=== PATIENT | male | born 1940 | race Caucasian/White ===

== ENCOUNTER 2017-08-10 07:26 | Day surgery (SDC) | payer OTHER, MEDICARE ==
[2017-08-10 08:49] VITALS: TEMP 98.1
[2017-08-10 09:14] VITALS: BP 140/69; PULSE 62
[2017-08-10] MEDS ORDERED: IRON SUCROSE INJECTION 200 MG in SODIUM CHLORIDE 100 ML IVPB ONE (10:00)
== END 2017-08-10 09:10 | disposition home or self-care (01) ==
LOC: JONCNONCHE 07:26 → J7W 08:09 → JONCNONCHE 09:10
PROVIDERS: ATTEND Internal Medicine Hematology & Oncology
PROC: 3E033GC Introduction of Other Therapeutic Substance into Peripheral Vein, Percutaneous Approach (ICD-10-PCS; principal; 2017-08-10)
DX: D50.9 Iron deficiency anemia, unspecified (principal)
CPT/HCPCS: 96365; J1756

== ENCOUNTER 2020-05-13 08:19 | Inpatient (IN) | payer OTHER, MEDICARE ==
[2020-05-13 09:03] VITALS: BMI 21.9
[2020-05-13 09:44] LABS: BASO % 0.2 % (0-2.0); HEMATOCRIT 42.3 % (35.4-49); HEMOGLOBIN 13.9 GM/dL (11.7-16.9); LYMPH % 2.2 % (8-40); MCH 32.7 pg (25.7-33.7); MCHC 32.9 g/dl (32.0-35.9); MEAN CELL VOLUME 99.4 fl (80-96); MEAN PLT VOLUME 9.4 fl (7.5-11.1); MONO % 2.2 % (3.8-10.2); NEUT % 95.4 % (42.8-82.8); PLATELET COUNT 181 K/MM3 (134-434); RBC 4.26 M/mm3 (4.00-5.60); RDW 14.3 % (11.9-15.9); VENOUS BASE EXCESS -2.6 mmol/L (-2-2); VENOUS O2 SATURATION 46.1 % (70-80); VENOUS PCO2 36.8 mmHg (38-52); VENOUS PH 7.39 (7.310-7.410); WHITE BLOOD COUNT 15.9 K/mm3 (4.0-10.0)
[2020-05-13 09:50] LABS: INR 0.97 (0.83-1.09); PROTHROMBIN TIME (PATIENT) 11.7 SEC (9.7-13.0)
[2020-05-13 09:52] LABS: ACTIVATED PTT 27.1 SECONDS (25.2-36.5)
[2020-05-13 10:10] LABS: CHLORIDE 107 mmol/L (98-107); POTASSIUM 4.1 mmol/L (3.5-5.1); SODIUM 140 mmol/L (136-145)
[2020-05-13 10:13] LABS: ALBUMIN 3.1 g/dl (3.4-5.0); ANION GAP 10 MMOL/L (8-16); BLOOD UREA NITROGEN 45.9 mg/dL (7-18); CALCIUM 8.7 mg/dL (8.5-10.1); CO2 23 mmol/L (21-32); GLUCOSE,RANDOM 102 mg/dL (74-106)
[2020-05-13 10:16] LABS: BILIRUBIN,DIRECT 0.2 mg/dL (0.0-0.2); CREATININE 1.6 mg/dL (0.55-1.3); SGOT/AST 82 U/L (15-37); SGPT/ALT 27 U/L (13-61)
[2020-05-13 10:18] LABS: BILIRUBIN,TOTAL 0.7 mg/dL (0.2-1); TOT PROT 7.2 g/dl (6.4-8.2)
[2020-05-13 10:19] LABS: ALK PHOS 53 U/L (45-117)
[2020-05-13] MEDS ORDERED: LACTATED RINGERS SOLUTION 1000 ML INFUS.BAG IV ONE (10:31)
[2020-05-13] MEDS ORDERED: CEFTRIAXONE 1 GM in DEXTROSE 5%-WATER - 100 ML IVPB ONE (10:35)
[2020-05-13] MEDS ORDERED: AZITHROMYCIN IVPB 500 MG in DEXTROSE 5%-WATER - 250 ML IVPB ONE (10:35)
[2020-05-13] MEDS ORDERED: DEXAMETHASONE SOD PHOSPHATE 4 MG/1 ML VIAL IVPUSH ONE (10:36)
[2020-05-13] MEDS ORDERED: AZITHROMYCIN IVPB 500 MG/250 ML BAG IVPB ONE (10:41)
[2020-05-13] MEDS ORDERED: DEXAMETHASONE SOD PHOSPHATE 4 MG/1 ML VIAL ONE (10:41)
[2020-05-13] MEDS ORDERED: CEFTRIAXONE 1 GM/50 ML BAG ONE (10:41)
[2020-05-13 12:18] LABS: ANISOCYTOSIS 1+; MACROCYTOSIS 0; OVALOCYTE 1+; PLATELET ESTIMATE NORMAL
[2020-05-13 13:15] LABS: LDH 408 U/L (87-246)
[2020-05-13 15:31] LABS: EPI CELLS 31 /uL (0-25.1); HYALINE CASTS 8 /uL (0-3.1); PH,URINE 5.5 (5.0-8.0); URINE APPEARANCE CLOUDY; URINE BACTERIA 7 /uL (0-1359); URINE BILIRUBIN NEGATIVE (NEGATIVE); URINE COLOR YELLOW; URINE GLUCOSE (UA) NEGATIVE (NEGATIVE); URINE KETONE TRACE (NEGATIVE); URINE LEUK ESTERASE NEGATIVE (NEGATIVE); URINE NITRITE NEGATIVE (NEGATIVE); URINE PROTEIN 1+ (NEGATIVE); URINE RBC 10 /uL (0-23.9); URINE UROBILINOGEN 0.2 mg/dL (0.2-1.0); URINE WBC 8 /uL (0-25.8)
[2020-05-13] MEDS: HEPARIN NA (PORCINE) 5,000 UNITS/ML 1ML VIAL SQ SCH (22:44)
[2020-05-13] MEDS ORDERED: MELATONIN 5 MG TABLETS PO ONE (22:55)
[2020-05-14] MEDS: HEPARIN NA (PORCINE) 5,000 UNITS/ML 1ML VIAL SQ SCH (06:50)
[2020-05-14] MEDS ORDERED: DEXTROSE 5%-WATER - 50 ML IVPB ONE (08:20)
[2020-05-14] MEDS ORDERED: cefTRIAXone SODIUM 1 GM VIAL ONE (08:20)
[2020-05-14 08:36] LABS: BASO % 0.2 % (0-2.0); HEMATOCRIT 40.9 % (35.4-49); HEMOGLOBIN 13.8 GM/dL (11.7-16.9); MCH 33.4 pg (25.7-33.7); MCHC 33.8 g/dl (32.0-35.9); MEAN PLT VOLUME 9.6 fl (7.5-11.1); MONO % 2.8 % (3.8-10.2); PLATELET COUNT 211 K/MM3 (134-434); RBC 4.13 M/mm3 (4.00-5.60); RDW 14.5 % (11.9-15.9); WHITE BLOOD COUNT 19.2 K/mm3 (4.0-10.0)
[2020-05-14 08:49] LABS: POTASSIUM 4.2 mmol/L (3.5-5.1)
[2020-05-14 08:51] LABS: CALCIUM 8.5 mg/dL (8.5-10.1)
[2020-05-14 08:52] LABS: ALBUMIN 2.4 g/dl (3.4-5.0); BLOOD UREA NITROGEN 45.8 mg/dL (7-18); MAGNESIUM 2.6 mg/dL (1.8-2.4)
[2020-05-14 08:55] LABS: PHOSPHOROUS 4.1 mg/dL (2.5-4.9)
[2020-05-14 08:56] LABS: BILIRUBIN,TOTAL 0.4 mg/dL (0.2-1); TOT PROT 5.8 g/dl (6.4-8.2)
[2020-05-14] MEDS: DEXAMETHASONE SOD PHOSPHATE 4 MG/1 ML VIAL IVPUSH SCH (09:22)
[2020-05-14] MEDS: ASCORBIC ACID 500 MG TABLET (FP) PO SCH (09:22)
[2020-05-14] MEDS: AZITHROMYCIN IVPB 500 MG/250 ML BAG IVPB SCH (09:22)
[2020-05-14] MEDS: ZINC SULFATE 220 MG CAPSULE (FP) PO SCH (09:22)
[2020-05-14 10:41] LABS: ANISOCYTOSIS 1+; MACROCYTOSIS 0; PLATELET ESTIMATE NORMAL
[2020-05-14] MEDS: CEFTRIAXONE 1 GM in DEXTROSE 5%-WATER - 50 ML IVPB SCH (10:55)
[2020-05-14] MEDS: APIXABAN 5 MG TABLET PO SCH ×2 (12:32→21:41)
[2020-05-14] MEDS ORDERED: REMDESIVIR 200 MG in SODIUM CHLORIDE 210 ML IVPB ONE (17:00)
[2020-05-14] MEDS: ROSUVASTATIN CA 10 MG TABLET (FP) PO SCH (21:40)
[2020-05-15] MEDS ORDERED: DEXTROSE 5%-WATER - 50 ML IVPB ONE (07:51)
[2020-05-15] MEDS ORDERED: cefTRIAXone SODIUM 1 GM VIAL ONE (07:51)
[2020-05-15 08:20] LABS: HEMATOCRIT 41.8 % (35.4-49); HEMOGLOBIN 13.9 GM/dL (11.7-16.9); MCH 32.6 pg (25.7-33.7); MCHC 33.3 g/dl (32.0-35.9); MEAN CELL VOLUME 97.9 fl (80-96); MEAN PLT VOLUME 8.9 fl (7.5-11.1); PLATELET COUNT 262 K/MM3 (134-434); RBC 4.27 M/mm3 (4.00-5.60); RDW 14.1 % (11.9-15.9); WHITE BLOOD COUNT 17.6 K/mm3 (4.0-10.0)
[2020-05-15 08:47] LABS: POTASSIUM 4.7 mmol/L (3.5-5.1)
[2020-05-15 09:08] LABS: BLOOD UREA NITROGEN 45.7 mg/dL (7-18); CALCIUM 8.3 mg/dL (8.5-10.1); MAGNESIUM 2.8 mg/dL (1.8-2.4)
[2020-05-15 09:11] LABS: CREATININE 0.9 mg/dL (0.55-1.3); PHOSPHOROUS 3.8 mg/dL (2.5-4.9)
[2020-05-15 09:25] LABS: ERYTHROCYTE SEDIMENTATION RATE 68 mm/hr (0-20)
[2020-05-15] MEDS: ZINC SULFATE 220 MG CAPSULE (FP) PO SCH (09:49)
[2020-05-15] MEDS: APIXABAN 5 MG TABLET PO SCH ×2 (09:49→21:50)
[2020-05-15] MEDS: ASCORBIC ACID 500 MG TABLET (FP) PO SCH (09:49)
[2020-05-15] MEDS: AZITHROMYCIN IVPB 500 MG/250 ML BAG IVPB SCH (09:49)
[2020-05-15] MEDS: DEXAMETHASONE SOD PHOSPHATE 4 MG/1 ML VIAL IVPUSH SCH (09:49)
[2020-05-15] MEDS: CEFTRIAXONE 1 GM in DEXTROSE 5%-WATER - 50 ML IVPB SCH (09:49)
[2020-05-15] MEDS ORDERED: PATIENT'S OWN MEDICATION (NON-FORMULARY) (Omeprazole 20 MG Capsule.Dr) PO SCH (10:00)
[2020-05-15] MEDS: FOLIC ACID 1 MG TABLET (FP) PO SCH (10:23)
[2020-05-15] MEDS: PANTOPRAZOLE 20 MG TABLET PO SCH (10:23)
[2020-05-15] MEDS: ALLOPURINOL 100 MG TABLET (FP) PO SCH (10:23)
[2020-05-15] MEDS ORDERED: SODIUM CHLORIDE 1,000 ML IV SCH (11:45)
[2020-05-15] MEDS ORDERED: PT OWN MED DRAWER 7, Y5N ONE (15:34)
[2020-05-15] MEDS: REMDESIVIR 100 MG in SODIUM CHLORIDE 230 ML IVPB SCH (16:05)
[2020-05-15] MEDS: ROSUVASTATIN CA 10 MG TABLET (FP) PO SCH (21:50)
[2020-05-16 07:54] LABS: POTASSIUM 4.6 mmol/L (3.5-5.1)
[2020-05-16 08:05] LABS: BLOOD UREA NITROGEN 34.8 mg/dL (7-18)
[2020-05-16 08:08] LABS: CALCIUM 8.3 mg/dL (8.5-10.1); CREATININE 0.7 mg/dL (0.55-1.3); HEMATOCRIT 42.7 % (35.4-49); HEMOGLOBIN 13.9 GM/dL (11.7-16.9); MCH 32.1 pg (25.7-33.7); MCHC 32.7 g/dl (32.0-35.9); MEAN CELL VOLUME 98.2 fl (80-96); MEAN PLT VOLUME 9.6 fl (7.5-11.1); PLATELET COUNT 300 K/MM3 (134-434); RBC 4.35 M/mm3 (4.00-5.60); RDW 14.1 % (11.9-15.9); WHITE BLOOD COUNT 12.4 K/mm3 (4.0-10.0)
[2020-05-16 08:10] LABS: MAGNESIUM 2.7 mg/dL (1.8-2.4)
[2020-05-16 08:11] LABS: PHOSPHOROUS 3.2 mg/dL (2.5-4.9)
[2020-05-16] MEDS ORDERED: cefTRIAXone SODIUM 1 GM VIAL ONE (09:19)
[2020-05-16] MEDS ORDERED: DEXTROSE 5%-WATER - 50 ML IVPB ONE (09:20)
[2020-05-16] MEDS: CEFTRIAXONE 1 GM in DEXTROSE 5%-WATER - 50 ML IVPB SCH (09:27)
[2020-05-16] MEDS: ASCORBIC ACID 500 MG TABLET (FP) PO SCH (09:27)
[2020-05-16] MEDS: ALLOPURINOL 100 MG TABLET (FP) PO SCH (09:27)
[2020-05-16] MEDS: APIXABAN 5 MG TABLET PO SCH ×2 (09:27→21:25)
[2020-05-16] MEDS: AZITHROMYCIN IVPB 500 MG/250 ML BAG IVPB SCH (09:27)
[2020-05-16] MEDS: PANTOPRAZOLE 20 MG TABLET PO SCH (09:27)
[2020-05-16] MEDS: ZINC SULFATE 220 MG CAPSULE (FP) PO SCH (09:28)
[2020-05-16] MEDS: DEXAMETHASONE SOD PHOSPHATE 4 MG/1 ML VIAL IVPUSH SCH (09:28)
[2020-05-16] MEDS: FOLIC ACID 1 MG TABLET (FP) PO SCH (09:28)
[2020-05-16 09:48] LABS: ERYTHROCYTE SEDIMENTATION RATE 39 mm/hr (0-20)
[2020-05-16] MEDS: REMDESIVIR 100 MG in SODIUM CHLORIDE 230 ML IVPB SCH (16:42)
[2020-05-16] MEDS: ROSUVASTATIN CA 10 MG TABLET (FP) PO SCH (21:25)
[2020-05-17 08:30] LABS: HEMATOCRIT 44.2 % (35.4-49); HEMOGLOBIN 14.4 GM/dL (11.7-16.9); MCHC 32.7 g/dl (32.0-35.9); MEAN CELL VOLUME 97.8 fl (80-96); MEAN PLT VOLUME 9.2 fl (7.5-11.1); PLATELET COUNT 341 K/MM3 (134-434); RBC 4.51 M/mm3 (4.00-5.60); RDW 14.1 % (11.9-15.9); WHITE BLOOD COUNT 14.5 K/mm3 (4.0-10.0)
[2020-05-17] MEDS ORDERED: cefTRIAXone SODIUM 1 GM VIAL ONE (08:34)
[2020-05-17] MEDS ORDERED: DEXTROSE 5%-WATER - 50 ML IVPB ONE (08:34)
[2020-05-17 08:52] LABS: POTASSIUM 4.7 mmol/L (3.5-5.1)
[2020-05-17 08:56] LABS: BLOOD UREA NITROGEN 30.2 mg/dL (7-18); CALCIUM 8.4 mg/dL (8.5-10.1); MAGNESIUM 2.6 mg/dL (1.8-2.4)
[2020-05-17 08:59] LABS: CREATININE 0.7 mg/dL (0.55-1.3)
[2020-05-17 09:00] LABS: PHOSPHOROUS 3.4 mg/dL (2.5-4.9)
[2020-05-17 09:51] LABS: ERYTHROCYTE SEDIMENTATION RATE 51 mm/hr (0-20)
[2020-05-17] MEDS: ALLOPURINOL 100 MG TABLET (FP) PO SCH (09:58)
[2020-05-17] MEDS: ZINC SULFATE 220 MG CAPSULE (FP) PO SCH (09:58)
[2020-05-17] MEDS: CEFTRIAXONE 1 GM in DEXTROSE 5%-WATER - 50 ML IVPB SCH (09:58)
[2020-05-17] MEDS: PANTOPRAZOLE 20 MG TABLET PO SCH (09:58)
[2020-05-17] MEDS: APIXABAN 5 MG TABLET PO SCH ×2 (09:58→22:25)
[2020-05-17] MEDS: DEXAMETHASONE SOD PHOSPHATE 4 MG/1 ML VIAL IVPUSH SCH (09:58)
[2020-05-17] MEDS: ASCORBIC ACID 500 MG TABLET (FP) PO SCH (09:58)
[2020-05-17] MEDS: FOLIC ACID 1 MG TABLET (FP) PO SCH (09:58)
[2020-05-17] MEDS: AZITHROMYCIN IVPB 500 MG/250 ML BAG IVPB SCH (09:59)
[2020-05-17] MEDS: REMDESIVIR 100 MG in SODIUM CHLORIDE 230 ML IVPB SCH (16:58)
[2020-05-17] MEDS: MELATONIN 5 MG TABLETS PO PRN (22:25)
[2020-05-17] MEDS: ROSUVASTATIN CA 10 MG TABLET (FP) PO SCH (22:25)
[2020-05-18 07:32] LABS: HEMATOCRIT 44.1 % (35.4-49); HEMOGLOBIN 14.5 GM/dL (11.7-16.9); MCHC 32.9 g/dl (32.0-35.9); MEAN CELL VOLUME 97.3 fl (80-96); MEAN PLT VOLUME 9.6 fl (7.5-11.1); PLATELET COUNT 365 K/MM3 (134-434); RBC 4.53 M/mm3 (4.00-5.60); RDW 14.1 % (11.9-15.9)
[2020-05-18 07:45] LABS: POTASSIUM 4.5 mmol/L (3.5-5.1)
[2020-05-18 07:48] LABS: BLOOD UREA NITROGEN 27.2 mg/dL (7-18); CALCIUM 8.3 mg/dL (8.5-10.1); MAGNESIUM 2.4 mg/dL (1.8-2.4)
[2020-05-18 07:52] LABS: CREATININE 0.7 mg/dL (0.55-1.3); PHOSPHOROUS 3.6 mg/dL (2.5-4.9)
[2020-05-18] MEDS ORDERED: cefTRIAXone SODIUM 1 GM VIAL ONE (08:49)
[2020-05-18] MEDS ORDERED: DEXTROSE 5%-WATER - 50 ML IVPB ONE (08:50)
[2020-05-18] MEDS: FOLIC ACID 1 MG TABLET (FP) PO SCH (09:02)
[2020-05-18] MEDS: CEFTRIAXONE 1 GM in DEXTROSE 5%-WATER - 50 ML IVPB SCH (09:02)
[2020-05-18] MEDS: APIXABAN 5 MG TABLET PO SCH ×2 (09:02→22:35)
[2020-05-18] MEDS: PANTOPRAZOLE 20 MG TABLET PO SCH (09:02)
[2020-05-18] MEDS: ALLOPURINOL 100 MG TABLET (FP) PO SCH (09:02)
[2020-05-18] MEDS: ASCORBIC ACID 500 MG TABLET (FP) PO SCH (09:02)
[2020-05-18] MEDS: ZINC SULFATE 220 MG CAPSULE (FP) PO SCH (09:02)
[2020-05-18] MEDS: AZITHROMYCIN IVPB 500 MG/250 ML BAG IVPB SCH (09:03)
[2020-05-18] MEDS: DEXAMETHASONE SOD PHOSPHATE 4 MG/1 ML VIAL IVPUSH SCH (09:03)
[2020-05-18 09:14] LABS: ERYTHROCYTE SEDIMENTATION RATE 18 mm/hr (0-20)
[2020-05-18] MEDS: REMDESIVIR 100 MG in SODIUM CHLORIDE 230 ML IVPB SCH (16:41)
[2020-05-18] MEDS: ROSUVASTATIN CA 10 MG TABLET (FP) PO SCH (22:35)
[2020-05-19 07:07] LABS: BASO % 0.3 % (0-2.0); HEMOGLOBIN 14.8 GM/dL (11.7-16.9); LYMPH % 2.2 % (8-40); MCH 32.6 pg (25.7-33.7); MCHC 33.6 g/dl (32.0-35.9); MONO % 4.1 % (3.8-10.2); NEUT % 93.4 % (42.8-82.8); PLATELET COUNT 385 K/MM3 (134-434); RBC 4.53 M/mm3 (4.00-5.60); RDW 14.3 % (11.9-15.9); WHITE BLOOD COUNT 15.7 K/mm3 (4.0-10.0)
[2020-05-19 07:25] LABS: POTASSIUM 4.3 mmol/L (3.5-5.1)
[2020-05-19 08:02] LABS: CALCIUM 8.2 mg/dL (8.5-10.1)
[2020-05-19 08:03] LABS: ALBUMIN 2.2 g/dl (3.4-5.0); BLOOD UREA NITROGEN 26.4 mg/dL (7-18); MAGNESIUM 2.3 mg/dL (1.8-2.4)
[2020-05-19 08:06] LABS: CREATININE 0.7 mg/dL (0.55-1.3); PHOSPHOROUS 3.7 mg/dL (2.5-4.9)
[2020-05-19 08:07] LABS: TOT PROT 5.9 g/dl (6.4-8.2)
[2020-05-19 08:09] LABS: BILIRUBIN,TOTAL 0.9 mg/dL (0.2-1)
[2020-05-19] MEDS: APIXABAN 5 MG TABLET PO SCH ×2 (09:22→23:05)
[2020-05-19] MEDS: PANTOPRAZOLE 20 MG TABLET PO SCH (09:22)
[2020-05-19] MEDS: ASCORBIC ACID 500 MG TABLET (FP) PO SCH (09:22)
[2020-05-19] MEDS: DEXAMETHASONE SOD PHOSPHATE 4 MG/1 ML VIAL IVPUSH SCH (09:22)
[2020-05-19] MEDS: ZINC SULFATE 220 MG CAPSULE (FP) PO SCH (09:22)
[2020-05-19] MEDS: ALLOPURINOL 100 MG TABLET (FP) PO SCH (09:22)
[2020-05-19] MEDS: FOLIC ACID 1 MG TABLET (FP) PO SCH (09:23)
[2020-05-19] MEDS ORDERED: PT OWN MED DRAWER 7, Y5N ONE (09:44)
[2020-05-19 11:00] LABS: ANISOCYTOSIS 1+; MACROCYTOSIS 1+; PLATELET ESTIMATE NORMAL
[2020-05-19] MEDS: ROSUVASTATIN CA 10 MG TABLET (FP) PO SCH (23:05)
[2020-05-20 07:56] LABS: BASO % 0.2 % (0-2.0); HEMATOCRIT 41.2 % (35.4-49); HEMOGLOBIN 13.6 GM/dL (11.7-16.9); LYMPH % 1.7 % (8-40); MCH 31.7 pg (25.7-33.7); MCHC 33.1 g/dl (32.0-35.9); MEAN CELL VOLUME 95.8 fl (80-96); MEAN PLT VOLUME 7.9 fl (7.5-11.1); MONO % 3.2 % (3.8-10.2); NEUT % 94.9 % (42.8-82.8); PLATELET COUNT 278 K/MM3 (134-434); RDW 14.5 % (11.9-15.9); WHITE BLOOD COUNT 18.3 K/mm3 (4.0-10.0)
[2020-05-20 08:09] LABS: POTASSIUM 4.3 mmol/L (3.5-5.1)
[2020-05-20 08:14] LABS: ALBUMIN 2.2 g/dl (3.4-5.0); BLOOD UREA NITROGEN 32.5 mg/dL (7-18); CALCIUM 8.1 mg/dL (8.5-10.1)
[2020-05-20 08:17] LABS: MAGNESIUM 2.3 mg/dL (1.8-2.4)
[2020-05-20 08:18] LABS: CREATININE 0.7 mg/dL (0.55-1.3)
[2020-05-20 08:19] LABS: BILIRUBIN,TOTAL 1.5 mg/dL (0.2-1); TOT PROT 5.6 g/dl (6.4-8.2)
[2020-05-20 08:21] LABS: PHOSPHOROUS 3.3 mg/dL (2.5-4.9)
[2020-05-20] MEDS: DEXAMETHASONE SOD PHOSPHATE 4 MG/1 ML VIAL IVPUSH SCH (10:42)
[2020-05-20] MEDS: FOLIC ACID 1 MG TABLET (FP) PO SCH (10:44)
[2020-05-20] MEDS: ZINC SULFATE 220 MG CAPSULE (FP) PO SCH (10:44)
[2020-05-20] MEDS: PANTOPRAZOLE 20 MG TABLET PO SCH (10:44)
[2020-05-20] MEDS: ALLOPURINOL 100 MG TABLET (FP) PO SCH (10:44)
[2020-05-20] MEDS: ASCORBIC ACID 500 MG TABLET (FP) PO SCH (10:44)
[2020-05-20] MEDS: APIXABAN 5 MG TABLET PO SCH ×2 (10:45→21:19)
[2020-05-20 11:12] LABS: ANISOCYTOSIS 0; MACROCYTOSIS 0; PLATELET ESTIMATE NORMAL
[2020-05-20] MEDS: MELATONIN 5 MG TABLETS PO PRN (21:19)
[2020-05-20] MEDS: ROSUVASTATIN CA 10 MG TABLET (FP) PO SCH (21:19)
[2020-05-21 06:28] LABS: BASO % 0.2 % (0-2.0); HEMATOCRIT 46.1 % (35.4-49); HEMOGLOBIN 15.1 GM/dL (11.7-16.9); LYMPH % 2.3 % (8-40); MCH 31.6 pg (25.7-33.7); MCHC 32.7 g/dl (32.0-35.9); MEAN CELL VOLUME 96.7 fl (80-96); MEAN PLT VOLUME 8.4 fl (7.5-11.1); MONO % 3.7 % (3.8-10.2); NEUT % 93.8 % (42.8-82.8); PLATELET COUNT 254 K/MM3 (134-434); RBC 4.77 M/mm3 (4.00-5.60); RDW 14.3 % (11.9-15.9)
[2020-05-21 06:45] LABS: POTASSIUM 4.1 mmol/L (3.5-5.1)
[2020-05-21 06:48] LABS: ALBUMIN 2.6 g/dl (3.4-5.0); BLOOD UREA NITROGEN 28.4 mg/dL (7-18); CALCIUM 8.8 mg/dL (8.5-10.1)
[2020-05-21 06:50] LABS: MAGNESIUM 2.3 mg/dL (1.8-2.4)
[2020-05-21 06:51] LABS: CREATININE 0.7 mg/dL (0.55-1.3)
[2020-05-21 06:52] LABS: PHOSPHOROUS 3.4 mg/dL (2.5-4.9)
[2020-05-21 06:54] LABS: BILIRUBIN,TOTAL 1.8 mg/dL (0.2-1); TOT PROT 6.8 g/dl (6.4-8.2)
[2020-05-21] MEDS: ASCORBIC ACID 500 MG TABLET (FP) PO SCH (09:16)
[2020-05-21] MEDS: PANTOPRAZOLE 20 MG TABLET PO SCH (09:16)
[2020-05-21] MEDS: ALLOPURINOL 100 MG TABLET (FP) PO SCH (09:16)
[2020-05-21] MEDS: APIXABAN 5 MG TABLET PO SCH ×2 (09:16→22:44)
[2020-05-21] MEDS: FOLIC ACID 1 MG TABLET (FP) PO SCH (09:16)
[2020-05-21] MEDS: ZINC SULFATE 220 MG CAPSULE (FP) PO SCH (09:16)
[2020-05-21] MEDS: DEXAMETHASONE SOD PHOSPHATE 4 MG/1 ML VIAL IVPUSH SCH (09:16)
[2020-05-21 09:18] LABS: ERYTHROCYTE SEDIMENTATION RATE 2 mm/hr (0-20)
[2020-05-21 11:00] LABS: ANISOCYTOSIS 1+; HELMET CELLS 1+; MACROCYTOSIS 1+; PLATELET ESTIMATE NORMAL
[2020-05-21] MEDS: ROSUVASTATIN CA 10 MG TABLET (FP) PO SCH (22:44)
[2020-05-22 07:39] LABS: BASO % 0.9 % (0-2.0); HEMATOCRIT 43.1 % (35.4-49); LYMPH % 2.1 % (8-40); MCH 31.6 pg (25.7-33.7); MCHC 32.6 g/dl (32.0-35.9); MEAN CELL VOLUME 96.7 fl (80-96); MEAN PLT VOLUME 9.1 fl (7.5-11.1); PLATELET COUNT 209 K/MM3 (134-434); RBC 4.45 M/mm3 (4.00-5.60); RDW 14.8 % (11.9-15.9); WHITE BLOOD COUNT 21.2 K/mm3 (4.0-10.0)
[2020-05-22 07:41] LABS: POTASSIUM 4.7 mmol/L (3.5-5.1)
[2020-05-22 07:43] LABS: CALCIUM 8.8 mg/dL (8.5-10.1); MAGNESIUM 2.4 mg/dL (1.8-2.4)
[2020-05-22 07:46] LABS: CREATININE 0.8 mg/dL (0.55-1.3); PHOSPHOROUS 3.8 mg/dL (2.5-4.9)
[2020-05-22] MEDS: ZINC SULFATE 220 MG CAPSULE (FP) PO SCH (10:00)
[2020-05-22] MEDS: PANTOPRAZOLE 20 MG TABLET PO SCH (10:00)
[2020-05-22] MEDS: DEXAMETHASONE SOD PHOSPHATE 4 MG/1 ML VIAL IVPUSH SCH (10:00)
[2020-05-22] MEDS: ALLOPURINOL 100 MG TABLET (FP) PO SCH (10:00)
[2020-05-22] MEDS: APIXABAN 5 MG TABLET PO SCH (10:00)
[2020-05-22] MEDS: FOLIC ACID 1 MG TABLET (FP) PO SCH (10:00)
[2020-05-22] MEDS: ASCORBIC ACID 500 MG TABLET (FP) PO SCH (10:00)
[2020-05-22 10:24] LABS: PLATELET ESTIMATE NORMAL
[2020-05-22 11:04] LABS: ERYTHROCYTE SEDIMENTATION RATE 6 mm/hr (0-20)
[2020-05-22] MEDS ORDERED: BACITRACIN 15 GM TUBE TOPICAL OINTMENT TP SCH (12:30)
[2020-05-22 14:27] VITALS: BP 136/85; PULSE 85; TEMP 97.4
== END 2020-05-22 16:16 | DRG 177 ==
LOC: JER 08:19 → JERBED 10:41 → J4W 18:37
PROVIDERS: ADMIT Internal Medicine; ATTEND Student in an Organized Health Care Education/Training Program
PROC: XW13325 Transfusion of Convalescent Plasma (Nonautologous) into Peripheral Vein, Percutaneous Approach, New Technology Group 5 (ICD-10-PCS; 2020-05-15)
PROC: XW033E5 Introduction of Remdesivir Anti-infective into Peripheral Vein, Percutaneous Approach, New Technology Group 5 (ICD-10-PCS; 2020-05-15)
PROC: 5A09457 Assistance with Respiratory Ventilation, 24-96 Consecutive Hours, Continuous Positive Airway Pressure (ICD-10-PCS; principal; 2020-05-21)
DX: U07.1 COVID-19 (principal); J96.01 Acute respiratory failure with hypoxia; J12.89 Other viral pneumonia; N17.9 Acute kidney failure, unspecified; E87.2 Acidosis; I24.8 Other forms of acute ischemic heart disease; E78.5 Hyperlipidemia, unspecified; I12.9 Hypertensive chronic kidney disease with stage 1 through stage 4 chronic kidney disease, or unspecified chronic kidney disease; N18.30 Chronic kidney disease, stage 3 unspecified; D72.829 Elevated white blood cell count, unspecified; K21.9 Gastro-esophageal reflux disease without esophagitis
CPT/HCPCS: 36415; 36430; 71045-TC-FY; 80048; 80053; 80061; 81003; 82248; 82550; 82553; 82728; 82803; 83036; 83605; 83615; 83721; 83735; 84100; 84439; 84443; 84484; 85025; 85027; 85379; 85610; 85651; 85730; 86140; 86850; 86900; 86901; 87040; 87086; 87804; 87899; 93005; 93010; 94660; 99285-25; C9803; J1644; P9017; U0003